=== PATIENT | female | born 1985 | race Caucasian/White ===

== ENCOUNTER 2020-06-14 18:57 | Emergency (ER) | payer OTHER ==
[~2020-06-14] VITALS: Ht 170.2 cm; Wt 113.4 kg
[2020-06-14 19:15] VITALS: BP_SYST 161
--- NOTE | 2020-06-14 20:56 | NUR ---
Stella armenta in ED - 06/14/20 at 2103 by [email or web address] [facility] up. Report given to Genesis EWING.
--- NOTE | 2020-06-14 21:17 | NUR ---
Patient to ER bed 3 to gown for evaluation. Side rails up. Report given to Robin EWING.
--- NOTE | 2020-06-14 21:17 | NUR ---
Received patient to Er w/ c/o left groin/pelvic pain onset since this a.m. Denies any trauma. Patient lmp 06/07/20 w/ normal flow. Denies being and denies any vaginal discharge. Patient resting quietly. Introduced self to patient, positioned for comfort and safety w/ bed to low position sr up. Warm blanket for comfort. No acute distress noted. Vital signs within normal range.
--- NOTE | 2020-06-14 21:34 | NUR ---
ANA Dave at bedside examining patient.
--- NOTE | 2020-06-14 21:35 | NUR ---
Urine HCG done, results negative
[2020-06-14 21:36] LABS: BILIRUBIN,URINE NEGATIVE (NEGATIVE); BLOOD, URINE 3+ (NEGATIVE); COLOR,URINE YELLOW (YELLOW); GLUCOSE,URINE NEGATIVE (NEGATIVE); KETONES,URINE NEGATIVE (NEGATIVE); LEUKOCYTE ESTERASE ,URINE NEGATIVE (NEGATIVE); NITRITE, URINE NEGATIVE (NEGATIVE); PROTEIN URINE NEGATIVE (NEGATIVE); UROBILINOGEN,URINE 0.2 (0.2-1.0)
--- NOTE | 2020-06-14 21:43 | NUR ---
Patient given written and verbal discharge instructions and verbalizes understanding. ER MD discussed with patient the results and treatment provided. Patient in stable condition. ID arm band removed. Rx of motrin given. Patient educated on pain management and to follow up with PMD. Pain Scale 2/10. Opportunity for questions provided and answered. Medication side effect fact sheet provided.
[2020-06-14 21:45] VITALS: BP_SYST 150
[2020-06-14 21:50] LABS: BACTERIA,URINE FEW /HPF (None Seen); CLARITY/URINE HAZY (CLEAR); RBC,URINE 20-50 /HPF (0-3); URINE AMORPHOUS PHOSPHATES 2+ /HPF (None Seen); WBC,URINE 0-3 /HPF (0-3)
[2020-06-14 21:51] LABS: MUCUS,URINE None Seen /LPF (None Seen)
== END 2020-06-14 21:45 | disposition home or self-care (01) ==
LOC: SED 18:57
DX: N83.292 Other ovarian cyst, left side (principal); D21.9 Benign neoplasm of connective and other soft tissue, unspecified; R10.2 Pelvic and perineal pain; N18.9 Chronic kidney disease, unspecified
CPT/HCPCS: 76830-TC; 76857; 81000-TC; 81025; 99284